=== PATIENT | male | born 1965 | race Caucasian/White ===

== ENCOUNTER 2018-01-24 04:58 | Inpatient (IN) | payer MEDICAID ==
[~2018-01-24] VITALS: Ht 185.4 cm; Wt 112.2 kg
[2018-01-24 05:13] LABS: BASOPHILS # (AUTO) 0.08 x10^3/uL (0-0.1); BASOPHILS % (AUTO) 1 % (0-1); EOSINOPHILS # (AUTO) 0.17 x10^3/uL (0-0.4); EOSINOPHILS % (AUTO) 1 % (1-7); LYMPHOCYTES % (AUTO) 36 % (22-44); MD NO; MEAN CORPUSCULAR HEMOGLOBIN 27.8 pg (27.5-34.5); MEAN CORPUSCULAR HGB CONC 32.7 g/dL (33.2-36.2); MEAN CORPUSCULAR VOLUME 84.9 fL (81-97); MEAN PLATELET VOLUME 8.7 fL (7.4-10.4); MONOCYTES # (AUTO) 1.05 x10^3/uL (0.2-0.8); MONOCYTES % (AUTO) 9 % (2-9); NEUTROPHILS # (AUTO) 6.41 x10^3/uL (1.8-6.8); NEUTROPHILS % (AUTO) 53 % (42-75); PLATELET COUNT 316 x10^3/uL (130-400); RED BLOOD COUNT 6.53 x10^6/uL (4.38-5.82); RED CELL DISTRIBUTION WIDTH 13.7 % (9.4-14.8)
[2018-01-24 05:23] LABS: INTERNATIONAL NORMALIZED RATIO 1.17 (0.93-1.1)
[2018-01-24 05:27] LABS: ALANINE AMINOTRANSFERASE 35 U/L (12-78); ALBUMIN 3.7 g/dL (3.4-5.0); ANION GAP 9 mmol/L (5-15); CALCIUM 8.7 mg/dL (8.5-10.1); CHLORIDE 105 mmol/L (98-107); CREATININE 1.19 mg/dL (0.7-1.3)
[2018-01-24 05:29] LABS: ALKALINE PHOSPHATASE 82 U/L (45-117); BILIRUBIN,TOTAL 0.5 mg/dL (0.2-1.0); TOTAL PROTEIN 8.2 g/dL (6.4-8.2)
[2018-01-24] MEDS ORDERED: SODIUM CHLORIDE FLUSH 10ML SYR IVF ONE (05:30)
[2018-01-24] MEDS ORDERED: ONDANSETRON ODT 4 MG PO PRN (08:00)
[2018-01-24] MEDS ORDERED: ONDANSETRON 2MG/ML, 2ML IVPush PRN (08:00)
[2018-01-24] MEDS ORDERED: BISACODYL 10 MG SUPP PR PRN (08:00)
[2018-01-24 08:41] LABS: TROPONIN I 0.017 ng/mL (0.000-0.045)
[2018-01-24] MEDS: LISINOPRIL 10 MG TABLET PO SCH ×2 (08:50→21:00)
[2018-01-24] MEDS: CARVEDILOL 6.25 MG TABLET PO SCH ×3 (08:50→18:21)
[2018-01-24] MEDS: DEXAMETHASONE 4 MG/ML, 1ML IVPush SCH ×3 (10:02→22:10)
[2018-01-24] MEDS: SENNA/DOCUSATE TABLET PO SCH (10:02)
[2018-01-24] MEDS ORDERED: LORazepam 2 MG/ML, 1ML IVPush ONE (10:30)
[2018-01-24] MEDS: SODIUM CHLORIDE 0.9% 1,000 ML IV SCH ×2 (10:55→21:19)
[2018-01-24] MEDS ORDERED: MIDAZOLAM 1 MG/ML, 2ML ONE (11:39)
[2018-01-24] MEDS ORDERED: GADOBUTROL 10 MMOL/10 ML PFS ONE (12:00)
[2018-01-24] MEDS ORDERED: GADOBUTROL 2 MMOL/2 ML VIAL ONE (12:00)
[2018-01-24] MEDS ORDERED: ZIPRASIDONE 20 MG INJ IM ONE (16:17)
[2018-01-24] MEDS: ZIPRASIDONE 20 MG INJ IM PRN (16:25)
[2018-01-24 17:38] VITALS: BP 160/104
[2018-01-25 04:00] VITALS: BP 123/78
[2018-01-25 04:24] LABS: MEAN CORPUSCULAR HGB CONC 33.2 g/dL (33.2-36.2); MEAN CORPUSCULAR VOLUME 84.4 fL (81-97); MEAN PLATELET VOLUME 8.8 fL (7.4-10.4); PLATELET COUNT 338 x10^3/uL (130-400); RED BLOOD COUNT 6.29 x10^6/uL (4.38-5.82); RED CELL DISTRIBUTION WIDTH 14.1 % (9.4-14.8)
[2018-01-25 04:36] LABS: ALANINE AMINOTRANSFERASE 28 U/L (12-78); ALBUMIN 3.1 g/dL (3.4-5.0); ANION GAP 10 mmol/L (5-15); CALCIUM 8.7 mg/dL (8.5-10.1); CHLORIDE 109 mmol/L (98-107); CREATININE 1.78 mg/dL (0.7-1.3)
[2018-01-25 04:46] LABS: ALKALINE PHOSPHATASE 83 U/L (45-117); BILIRUBIN,TOTAL 0.6 mg/dL (0.2-1.0); CHOL/HDL RATIO 6.4; CHOLESTEROL, TOTAL 197 mg/dL (140-239); HDL CHOL % 16 % (26-37); HDL CHOLESTEROL (DIRECT) 31 mg/dL (40-60); LDL CHOLESTEROL,CALCULATED 135 mg/dL (54-169); LDL/HDL RATIO 4.4 (0.5-3.0); TOTAL PROTEIN 7.6 g/dL (6.4-8.2); TRIGLYCERIDES 155 mg/dL (50-200); VLDL CHOLESTEROL 31 mg/dL (0-25)
[2018-01-25 04:53] LABS: MD YES
[2018-01-25 04:56] LABS: <RBC MORPHOLOGY> NORMAL; LYMPH#(MANUAL) 2.35 x10^3/uL (1-3.4); LYMPHS% (MANUAL) 11 % (22-44); MONOS#(MANUAL) 0.64 x10^3/uL (0.3-2.7); MONOS% (MANUAL) 3 % (2-9); MYELOCYTES# (MANUAL) 0.21 x10^3/uL (0-0); MYELOCYTES% (MANUAL) 1 % (0-0); SEG#(MANUAL) 18.19 x10^3/uL (1.8-6.8); SEGS% (MANUAL) 85 % (42-75)
[2018-01-25 04:57] LABS: <PLATELET ESTIMATE> ADEQUATE; <PLT MORPHOLOGY> NORMAL PLT MORPH
[2018-01-25] MEDS: DEXAMETHASONE 4 MG/ML, 1ML IVPush SCH (04:58)
[2018-01-25] MEDS ORDERED: MIDAZOLAM 1 MG/ML, 5ML IVPush ONE (05:00)
[2018-01-25 05:11] LABS: FREE T4 (FREE THYROXINE) 1.04 ng/dL (0.76-1.46)
[2018-01-25] MEDS: CARVEDILOL 6.25 MG TABLET PO SCH ×2 (06:00→18:00)
[2018-01-25] MEDS ORDERED: RISPERIDONE 0.5 MG TABLET ONE (08:22)
[2018-01-25] MEDS: RISPERIDONE 1 MG TABLET PO SCH ×2 (08:23→19:36)
[2018-01-25] MEDS: SENNA/DOCUSATE TABLET PO SCH (08:24)
[2018-01-25] MEDS: OXYcodone IR 5MG TABLET PO PRN ×2 (08:24→13:32)
[2018-01-25] MEDS: ENALAPRILAT 1.25 MG/ML, 2ML IVPush PRN (09:18)
[2018-01-25] MEDS: LABETALOL 5MG/ML, 20ML IVPush PRN ×2 (10:44→23:22)
[2018-01-25] MEDS: ZIPRASIDONE 20 MG INJ IM PRN ×2 (14:37→19:36)
[2018-01-26] VITALS (18 sets, daily range): BP systolic 144–189; BP diastolic 88–122
[2018-01-26] MEDS: ZIPRASIDONE 20 MG INJ IM PRN ×3 (01:48→22:30)
[2018-01-26] MEDS: LABETALOL 5MG/ML, 20ML IVPush PRN ×4 (03:19→14:14)
[2018-01-26 06:00] LABS: ANION GAP 10 mmol/L (5-15); CALCIUM 8.9 mg/dL (8.5-10.1); CHLORIDE 107 mmol/L (98-107); CREATININE 1.14 mg/dL (0.7-1.3)
[2018-01-26] MEDS: CARVEDILOL 6.25 MG TABLET PO SCH ×3 (06:00→18:20)
[2018-01-26] MEDS: ENALAPRILAT 1.25 MG/ML, 2ML IVPush PRN ×5 (07:53→22:04)
[2018-01-26] MEDS: SENNA/DOCUSATE TABLET PO SCH (09:00)
[2018-01-26] MEDS: RISPERIDONE 1 MG TABLET PO SCH ×3 (09:00→19:45)
[2018-01-26] MEDS: ACETAMINOPHEN 325 MG TABLET PO PRN (12:16)
[2018-01-26] MEDS ORDERED: CARVEDILOL 6.25 MG TABLET ONE (12:36)
[2018-01-26] MEDS: OXYcodone IR 5MG TABLET PO PRN (13:07)
[2018-01-26] MEDS ORDERED: AMPH20TA2 PO (14:58)
[2018-01-26] MEDS ORDERED: TEST200V21 IM (14:58)
[2018-01-27 01:01] VITALS: BP 149/81
[2018-01-27 01:33] VITALS: BP 173/100
[2018-01-27] MEDS: ENALAPRILAT 1.25 MG/ML, 2ML IVPush PRN (01:33)
[2018-01-27] MEDS ORDERED: hydrALAzine 20 MG/ML, 1ML IV PRN (02:00)
[2018-01-27 06:09] VITALS: BP 121/78
[2018-01-27 08:00] VITALS: BP 118/77
[2018-01-27] MEDS: CARVEDILOL 6.25 MG TABLET PO SCH ×2 (08:00→18:27)
[2018-01-27] MEDS: DOXAZOSIN 2MG TABLET PO SCH (09:39)
[2018-01-27] MEDS: SENNA/DOCUSATE TABLET PO SCH (09:40)
[2018-01-27] MEDS: RISPERIDONE 1 MG TABLET PO SCH ×2 (09:40→20:30)
[2018-01-27 14:00] VITALS: BP 113/74
[2018-01-27 19:19] VITALS: BP 110/76
[2018-01-28 02:14] VITALS: BP 104/69
[2018-01-28 08:50] VITALS: BP 121/67
[2018-01-28] MEDS: DOXAZOSIN 2MG TABLET PO SCH (09:27)
[2018-01-28] MEDS: SENNA/DOCUSATE TABLET PO SCH (09:28)
[2018-01-28] MEDS: RISPERIDONE 1 MG TABLET PO SCH (09:28)
[2018-01-28] MEDS: CARVEDILOL 6.25 MG TABLET PO SCH ×2 (09:28→17:40)
[2018-01-28 14:38] VITALS: BP 102/65
[2018-01-28 20:06] VITALS: BP 115/76
[2018-01-29 00:34] VITALS: BP 142/84
[2018-01-29 04:39] LABS: BASOPHILS # (AUTO) 0.06 x10^3/uL (0-0.1); BASOPHILS % (AUTO) 0 % (0-1); EOSINOPHILS # (AUTO) 0.21 x10^3/uL (0-0.4); EOSINOPHILS % (AUTO) 2 % (1-7); LYMPHOCYTES # (AUTO) 2.83 x10^3/uL (1-3.4); LYMPHOCYTES % (AUTO) 22 % (22-44); MD NO; MEAN CORPUSCULAR VOLUME 84.9 fL (81-97); MEAN PLATELET VOLUME 9.2 fL (7.4-10.4); MONOCYTES # (AUTO) 1.07 x10^3/uL (0.2-0.8); MONOCYTES % (AUTO) 8 % (2-9); NEUTROPHILS % (AUTO) 68 % (42-75); PLATELET COUNT 273 x10^3/uL (130-400); RED BLOOD COUNT 6.16 x10^6/uL (4.38-5.82); RED CELL DISTRIBUTION WIDTH 13.9 % (9.4-14.8)
[2018-01-29 04:51] LABS: ANION GAP 9 mmol/L (5-15); CALCIUM 8.5 mg/dL (8.5-10.1); CHLORIDE 105 mmol/L (98-107)
[2018-01-29 04:52] LABS: CREATININE 1.01 mg/dL (0.7-1.3)
[2018-01-29] MEDS ORDERED: BISACODYL 5 MG EC TABLET PO PRN (07:30)
[2018-01-29] MEDS: DOXAZOSIN 2MG TABLET PO SCH (07:36)
[2018-01-29] MEDS: POLYETHYLENE GLYCOL 17 GM PACKET PO PRN (07:36)
[2018-01-29] MEDS: SENNA/DOCUSATE TABLET PO SCH (07:36)
[2018-01-29] MEDS: CARVEDILOL 6.25 MG TABLET PO SCH ×2 (07:36→20:16)
[2018-01-29 07:43] VITALS: BP 155/94
[2018-01-29] MEDS: NYSTATIN 500,000 UNITS/5 ML UDC PO SCH ×3 (12:43→20:16)
[2018-01-29 14:30] VITALS: BP 148/88
[2018-01-29 20:23] VITALS: BP 137/83
[2018-01-30 05:24] LABS: BASOPHILS % (AUTO) 0 % (0-1); EOSINOPHILS # (AUTO) 0.14 x10^3/uL (0-0.4); EOSINOPHILS % (AUTO) 1 % (1-7); LYMPHOCYTES # (AUTO) 2.67 x10^3/uL (1-3.4); LYMPHOCYTES % (AUTO) 20 % (22-44); MD NO; MEAN CORPUSCULAR HEMOGLOBIN 28.3 pg (27.5-34.5); MEAN CORPUSCULAR HGB CONC 33.7 g/dL (33.2-36.2); MEAN CORPUSCULAR VOLUME 84.1 fL (81-97); MEAN PLATELET VOLUME 9.1 fL (7.4-10.4); MONOCYTES % (AUTO) 9 % (2-9); NEUTROPHILS # (AUTO) 9.31 x10^3/uL (1.8-6.8); NEUTROPHILS % (AUTO) 70 % (42-75); PLATELET COUNT 282 x10^3/uL (130-400); RED BLOOD COUNT 6.26 x10^6/uL (4.38-5.82); RED CELL DISTRIBUTION WIDTH 13.5 % (9.4-14.8)
[2018-01-30 05:42] LABS: ANION GAP 10 mmol/L (5-15); CALCIUM 8.8 mg/dL (8.5-10.1); CHLORIDE 105 mmol/L (98-107)
[2018-01-30 07:58] VITALS: BP 149/83
[2018-01-30] MEDS: DOXAZOSIN 2MG TABLET PO SCH (09:31)
[2018-01-30] MEDS: SENNA/DOCUSATE TABLET PO SCH (09:31)
[2018-01-30] MEDS: NYSTATIN 500,000 UNITS/5 ML UDC PO SCH ×4 (09:31→21:05)
[2018-01-30] MEDS: CARVEDILOL 6.25 MG TABLET PO SCH ×2 (09:31→17:15)
[2018-01-30 12:07] VITALS: BP 150/90
[2018-01-30] MEDS: OXYcodone IR 5MG TABLET PO PRN (14:52)
[2018-01-30 15:12] VITALS: BP 161/97
[2018-01-30 20:00] VITALS: BP 134/79
[2018-01-30] MEDS: AMLODIPINE 2.5 MG TABLET PO SCH (21:00)
[2018-01-30] MEDS: POLYETHYLENE GLYCOL 17 GM PACKET PO PRN (21:06)
[2018-01-31] VITALS (11 sets, daily range): BP systolic 134–170; BP diastolic 87–123
[2018-01-31] MEDS: OXYcodone IR 5MG TABLET PO PRN (00:34)
[2018-01-31] MEDS: CARVEDILOL 6.25 MG TABLET PO SCH ×2 (06:00→17:37)
[2018-01-31] MEDS: NYSTATIN 500,000 UNITS/5 ML UDC PO SCH ×4 (06:00→19:50)
[2018-01-31] MEDS: DOXAZOSIN 2MG TABLET PO SCH (08:50)
[2018-01-31] MEDS: SENNA/DOCUSATE TABLET PO SCH (08:50)
[2018-01-31] MEDS: AMLODIPINE 2.5 MG TABLET PO SCH (08:50)
[2018-01-31] MEDS: AMLODIPINE 5 MG TABLET PO SCH (19:50)
[2018-01-31] MEDS: LABETALOL 5MG/ML, 20ML IVPush PRN (19:50)
[2018-02-01] VITALS (9 sets, daily range): BP systolic 122–143; BP diastolic 77–97
[2018-02-01] MEDS: CARVEDILOL 6.25 MG TABLET PO SCH ×2 (06:13→17:51)
[2018-02-01] MEDS: NYSTATIN 500,000 UNITS/5 ML UDC PO SCH ×4 (06:14→20:27)
[2018-02-01] MEDS: AMLODIPINE 5 MG TABLET PO SCH ×2 (09:00→20:27)
[2018-02-01] MEDS: SENNA/DOCUSATE TABLET PO SCH (10:01)
[2018-02-01] MEDS: DOXAZOSIN 2MG TABLET PO SCH (10:01)
[2018-02-01] MEDS: ACETAMINOPHEN 325 MG TABLET PO PRN (10:01)
[2018-02-01] MEDS: POLYETHYLENE GLYCOL 17 GM PACKET PO PRN (20:27)
[2018-02-02] MEDS: CARVEDILOL 6.25 MG TABLET PO SCH ×2 (06:00→17:04)
[2018-02-02] MEDS: NYSTATIN 500,000 UNITS/5 ML UDC PO SCH ×4 (06:00→21:39)
[2018-02-02 08:56] VITALS: BP 142/80
[2018-02-02] MEDS: AMLODIPINE 5 MG TABLET PO SCH ×3 (09:00→21:39)
[2018-02-02] MEDS: DOXAZOSIN 2MG TABLET PO SCH (10:04)
[2018-02-02] MEDS: SENNA/DOCUSATE TABLET PO SCH (10:04)
[2018-02-02 14:58] VITALS: BP 127/75
[2018-02-02] MEDS ORDERED: GOLYTELY 4,000ML ORAL.SOL PO ONE (15:30)
[2018-02-02 20:37] VITALS: BP 132/87
[2018-02-02 21:38] VITALS: BP 132/77
[2018-02-03 02:37] VITALS: BP 139/77
[2018-02-03 06:13] VITALS: BP 134/83
[2018-02-03] MEDS: CARVEDILOL 6.25 MG TABLET PO SCH ×2 (06:14→17:57)
[2018-02-03] MEDS: NYSTATIN 500,000 UNITS/5 ML UDC PO SCH ×4 (06:14→20:47)
[2018-02-03] MEDS: SENNA/DOCUSATE TABLET PO SCH (09:42)
[2018-02-03] MEDS: AMLODIPINE 5 MG TABLET PO SCH ×2 (09:42→20:47)
[2018-02-03] MEDS: DOXAZOSIN 2MG TABLET PO SCH (09:43)
[2018-02-03 12:15] LABS: MICROSCOPIC INDICATED
[2018-02-03 12:33] VITALS: BP 117/76
[2018-02-03 12:34] LABS: CULTURE INDICATED? YES
[2018-02-03 19:33] VITALS: BP 131/73
[2018-02-03] MEDS: MIRTAZAPINE 15 MG TABLET PO SCH (20:47)
[2018-02-04 03:50] VITALS: BP 168/82
[2018-02-04] MEDS: CARVEDILOL 6.25 MG TABLET PO SCH ×2 (05:55→18:05)
[2018-02-04] MEDS: NYSTATIN 500,000 UNITS/5 ML UDC PO SCH ×5 (05:55→22:41)
[2018-02-04] MEDS: DOXAZOSIN 2MG TABLET PO SCH (08:17)
[2018-02-04] MEDS: AMLODIPINE 5 MG TABLET PO SCH ×2 (08:17→22:41)
[2018-02-04] MEDS: SENNA/DOCUSATE TABLET PO SCH (08:18)
[2018-02-04 08:22] VITALS: BP 136/80
[2018-02-04 13:48] VITALS: BP 158/95
[2018-02-04] MEDS: ENALAPRILAT 1.25 MG/ML, 2ML IVPush PRN (16:00)
[2018-02-04 22:00] VITALS: BP 135/81
[2018-02-04] MEDS: MIRTAZAPINE 15 MG TABLET PO SCH (22:41)
[2018-02-05] MEDS: NYSTATIN 500,000 UNITS/5 ML UDC PO SCH ×4 (06:12→22:36)
[2018-02-05] MEDS: CARVEDILOL 6.25 MG TABLET PO SCH ×2 (06:14→17:00)
[2018-02-05 07:57] VITALS: BP 131/83
[2018-02-05] MEDS: SENNA/DOCUSATE TABLET PO SCH (09:12)
[2018-02-05] MEDS: DOXAZOSIN 2MG TABLET PO SCH (09:12)
[2018-02-05] MEDS: AMLODIPINE 5 MG TABLET PO SCH ×2 (09:12→20:06)
[2018-02-05 13:03] VITALS: BP 131/81
[2018-02-05 18:28] VITALS: BP 142/84
[2018-02-05] MEDS: MIRTAZAPINE 15 MG TABLET PO SCH (20:06)
[2018-02-06 03:09] VITALS: BP 142/82
[2018-02-06] MEDS: NYSTATIN 500,000 UNITS/5 ML UDC PO SCH ×4 (05:32→20:59)
[2018-02-06] MEDS: CARVEDILOL 6.25 MG TABLET PO SCH ×2 (05:34→16:53)
[2018-02-06 07:27] VITALS: BP 146/85
[2018-02-06] MEDS: SENNA/DOCUSATE TABLET PO SCH (09:54)
[2018-02-06] MEDS: AMLODIPINE 5 MG TABLET PO SCH ×2 (09:54→20:59)
[2018-02-06] MEDS: DOXAZOSIN 2MG TABLET PO SCH (09:54)
[2018-02-06 13:47] VITALS: BP 116/74
[2018-02-06] MEDS: OXYcodone IR 5MG TABLET PO PRN (16:57)
[2018-02-06 19:26] VITALS: BP 125/73
[2018-02-06] MEDS: MIRTAZAPINE 15 MG TABLET PO SCH (20:59)
[2018-02-06 21:02] VITALS: BP 136/81
[2018-02-07 03:55] VITALS: BP 158/97
[2018-02-07 05:25] VITALS: BP 123/79
[2018-02-07] MEDS: NYSTATIN 500,000 UNITS/5 ML UDC PO SCH ×4 (05:28→21:00)
[2018-02-07] MEDS: CARVEDILOL 6.25 MG TABLET PO SCH ×2 (05:28→18:36)
[2018-02-07 08:22] VITALS: BP 137/91
[2018-02-07] MEDS: SENNA/DOCUSATE TABLET PO SCH (08:23)
[2018-02-07] MEDS: AMLODIPINE 5 MG TABLET PO SCH ×2 (08:28→21:05)
[2018-02-07] MEDS: DOXAZOSIN 2MG TABLET PO SCH (08:28)
[2018-02-07] MEDS ORDERED: NYST1000 PO (09:33)
[2018-02-07] MEDS ORDERED: CARV6.2512 PO (09:33)
[2018-02-07] MEDS ORDERED: MIRT15TA4 PO (09:33)
[2018-02-07] MEDS ORDERED: ONDA4TAB13 PO (09:33)
[2018-02-07] MEDS ORDERED: DOXA2TAB9 PO (09:33)
[2018-02-07] MEDS ORDERED: SIMV40TA PO (09:34)
[2018-02-07] MEDS ORDERED: AMLO5TAB7 PO (09:35)
[2018-02-07 12:41] VITALS: BP 137/82
[2018-02-07 20:40] VITALS: BP 137/89
[2018-02-07] MEDS: MIRTAZAPINE 15 MG TABLET PO SCH (21:05)
[2018-02-07] MEDS: OXYcodone IR 5MG TABLET PO PRN (21:11)
[2018-02-08 03:38] VITALS: BP 134/81
[2018-02-08] MEDS: CARVEDILOL 6.25 MG TABLET PO SCH (04:56)
[2018-02-08] MEDS: NYSTATIN 500,000 UNITS/5 ML UDC PO SCH ×2 (04:56→09:27)
[2018-02-08 06:37] VITALS: BP 117/71
[2018-02-08 09:25] VITALS: BP 133/86
[2018-02-08] MEDS: DOXAZOSIN 2MG TABLET PO SCH (09:26)
[2018-02-08] MEDS: AMLODIPINE 5 MG TABLET PO SCH (09:27)
[2018-02-08] MEDS: SENNA/DOCUSATE TABLET PO SCH (09:27)
[2018-02-08 12:56] VITALS: BP 121/74
== END 2018-02-08 15:15 | DRG 64 ==
LOC: ED 05:58 → EDIP 06:03 → ED 06:15 → CCU 07:40 → 5SO 01-25 21:30 → 4WST 01-30 12:04
PROVIDERS: ADMIT Internal Medicine; ATTEND Internal Medicine
DX: I63.9 Cerebral infarction, unspecified (principal); I61.0 Nontraumatic intracerebral hemorrhage in hemisphere, subcortical; N17.0 Acute kidney failure with tubular necrosis; G81.91 Hemiplegia, unspecified affecting right dominant side; I16.9 Hypertensive crisis, unspecified; D72.828 Other elevated white blood cell count; R47.01 Aphasia; E78.5 Hyperlipidemia, unspecified; E87.6 Hypokalemia; I10 Essential (primary) hypertension; R29.810 Facial weakness; I35.8 Other nonrheumatic aortic valve disorders; R47.02 Dysphasia; T38.0X5A Adverse effect of glucocorticoids and synthetic analogues, initial encounter; Z91.14 Patient's other noncompliance with medication regimen; Z93.0 Tracheostomy status; Y92.89 Other specified places as the place of occurrence of the external cause
CPT/HCPCS: 36415; 70450; 70553; 71045; 80047; 80048; 80053; 80061; 81001; 82962; 83735; 84100; 84439; 84443; 84481; 84484; 85025; 85520; 85610; 85730; 87081; 87086; 93005; 93306; 93975; 96374; 99291; A9585; G0378; J1100; J2250; J3486; J7060; 92523-GN; J0360; J2060; J7030; J7050